=== PATIENT | female | born 1960 | race Caucasian/White ===

== ENCOUNTER 2023-02-24 08:51 | Emergency (ER) | payer MEDICARE, SELFPAY ==
[2023-02-24] VITALS (17 sets, daily range): BP systolic 96–151; BP diastolic 56–103; PULSE 99–114; RESP 15–33; TEMP 36.9; O2SAT 93–99; BMI 31.9
--- NOTE | 2023-02-24 09:31 | ED.ABDPAIN1 ---
HPI - Abdominal Pain General Chief Complaint: Abdominal Pain Stated Complaint: ABDOMINAL PAIN Time Seen by Provider: 02/24/23 09:16 Source: patient Mode of arrival: ambulance Limitations: no limitations History of Present Illness HPI narrative: pt presents to emergency department complaining of abdominal pain. Pain is worse in the left lower quadrant and it started at midnight. Patient has been very nauseated denies any vomiting. She has a history of bowel resections for diverticulitis and has a history of small bowel obstructions. Patient's last surgery was at [facility] 2017. She denies any fever, chills, cough, chest pain, shortness of breath. She denies any paresthesias, or focal weakness. She denies any constipation, or diarrhea. She denies any flank pain, hematuria, dysuria. She denies any trauma. states last week she was having a lot of back pain and she has been taking a lot of Advil. Subsequently a week ago she was having rectal bleeding which she attributed to her normal rectal bleeding that she gets from diverticulosis. At midnight today she developed severe abdominal pain which felt different than her diverticulitis pain. Related Data Home Medications Medication Instructions Recorded Confirmed No Known Home Medications 02/24/23 02/24/23 Allergies Allergy/AdvReac Type Severity Reaction Status Date / Time morphine AdvReac Mild Nausea Verified 02/24/23 09:02 Review of Systems ROS Status of ROS 10 or more systems reviewed and unremarkable except as noted in history and below [facility] Social History Smoking status: Current every day smoker Exam Narrative Exam Narrative: Nurses notes and vital signs reviewed and patient is not hypoxic. General: Nontoxic, Og pain, but in no apparent distress. Skin: Warm, dry, no pallor noted. No Rash Head: Normocephalic, atraumatic. Neck: Supple, non-tender. Eye: Pupils are equal, round and EOMI. No scleral icterus. Ears, Nose, Mouth, and Throat: TM clear, no posterior oropharynx erythema or nasal mucosal hypertrophy, uvula is mid-line Oral mucosa is moist Cardiovascular: Sinus tachycardia without murmur, gallop or rub. Respiratory: No accessory muscle use or respiratory distress. Lungs are clear to auscultation, no wheezing, rales or rhonchi Chest Wall: no tenderness Back: No midline thoracic or lumbar vertebral tenderness. No CVA tenderness Musculoskeletal: normal ROM, no calf or popliteal tenderness, no lower extremity edema/swelling GI: Abdomen is soft, non-distended. Normal bowel sounds. moderate diffuse tenderness to palpation. No rebound, mild guarding, or rigidity noted. Neurological: A&O x4. No cranial nerve dysfunction observed. No truncal ataxia. Moves all extremities. Sensation intact. Psychiatric: Cooperative and interactive. Normal mood and affect. Constitutional Vital Signs, click to edit/add: Last Vital Signs Temp 98.5 F 02/24/23 08:54 Pulse 111 H 02/24/23 12:45 Resp 15 02/24/23 12:45 BP 114/70 02/24/23 12:45 Pulse Ox 93 L 02/24/23 12:45 O2 Del Method Room Air 02/24/23 08:54 Course Vital Signs Vital signs: Vital Signs Temperature 98.5 F 02/24/23 08:54 Pulse Rate 110 H 02/24/23 08:54 Respiratory Rate 20 02/24/23 08:54 Blood Pressure 108/66 02/24/23 08:54 Pulse Oximetry 97 02/24/23 08:54 Oxygen Delivery Method Room Air 02/24/23 08:54 Temperature 98.5 F 02/24/23 08:54 Pulse Rate 111 H 02/24/23 12:45 Respiratory Rate 15 02/24/23 12:45 Blood Pressure 114/70 02/24/23 12:45 Pulse Oximetry 93 L 02/24/23 12:45 Oxygen Delivery Method Room Air 02/24/23 08:54 MDM - Abdominal Pain MDM Narrative Medical decision making narrative: Patient states she does not like morphine. She states makes her nauseated. Patient advised all narcotics have a side effect of nausea. And she will be given Zofran with it. She was Then 1 L of normal saline, Zofran 4 mg, and 50 ?g of fentanyl. Labs and CT scan are pending. Lab studies showed leukocytosis, lactic acidosis, and anemia. 2 units of packed red blood cells were ordered. The patient has been negative including do not have her blood type available and they will be 90 minutes for the blood to arrive here from the nearest facility. In the meantime radiologist called me and advised the patient has a perforation from her upper stomach at this time [facility] was contacted and they do not have any beds available. [facility] been contacted to transfer the patient for definitive care. Patient started on Zosyn and given 1 mg of Dilaudid IV as she is complaining of continued pain. Patient was discussed with Dr. Sapp who has accepted the patient in transfer. Patient will be transferred to Emergency Department to Emergency Department. Patient was accepted by Dr. Mckeon in the emergency department. Flight in route. Patient and family have been updated.Packed red blood cells arrived at the same time as flight. [facility] has taken the blood and they will started in route. Differential Diagnosis Differential diagnosis: Likely abdominal pain, constipation, diverticulitis, gastroenteritis and small bowel obstruction Medical Records Attestation: I reviewed the patient's medical records. Lab Data Attestation: I reviewed the patient's lab results. Labs: Lab Results 02/24/23 02/24/23 Range/Units 10:13 11:01 WBC 17.9 H (4.0-11.0) 10^3/uL RBC 2.52 L (4.20-5.40) 10^6/uL Hgb 5.8 L* (12.0-16.0) g/dL Hct 19.9 L* (36.0-48.0) % MCV 79.0 L (81.0-99.0) fL MCH 23.0 L (26.7-34.0) pg MCHC 29.1 L (29.9-35.2) g/dL RDW 20.5 H (11.0-15.0) % Plt Count 706 H (150-450) 10^3/uL MPV 10.1 (9.5-13.5) fL Neut % (Auto) 93.4 H (43.0-75.0) % Lymph % (Auto) 2.0 L (20.5-60.0) % [place] % (Auto) 4.1 (1.7-12.0) % Eos % (Auto) 0.0 L (0.9-7.0) % Baso % (Auto) 0.1 L (0.2-2.0) % Neut # (Auto) 16.7 H (1.4-6.5) 10^3/uL Lymph # (Auto) 0.4 L (1.2-3.8) 10^3/uL [place] # (Auto) 0.7 (0.3-0.8) 10^3/uL Eos # (Auto) 0.0 (0.0-0.7) 10^3/uL Baso # (Auto) 0.0 (0.0-0.1) 10^3/uL Abs Immat Gran (auto) 0.07 H (0.00-0.03) 10^3/uL Imm/Tot Granulo (auto) 0.4 (0.0-0.5) % Sodium 141 (136-145) mmol/L Potassium 3.4 L (3.5-5.1) mmol/L Chloride 107 (98-107) mmol/L Carbon Dioxide 23.6 (21.0-32.0) mmol/L Anion Gap 13.8 BUN 15.0 (7.0-18.0) mg/dL Creatinine 1.06 H (0.55-1.02) mg/dL Est GFR ( Amer) >60 (>=60) Est GFR (Non-Af Amer) 53 L (>=60) BUN/Creatinine Ratio 14.2 Glucose 185 H (74-106) mg/dL Lactate 2.3 H* (0.4-2.0) mmol/L Calcium 8.9 (8.5-10.1) mg/dL Total Bilirubin 0.3 (0.2-1.0) mg/dL AST 8 L (15-37) U/L ALT <6 L (14-59) U/L Alkaline Phosphatase 123 H (46-116) U/L Total Protein 6.1 L (6.4-8.2) g/dL Albumin 2.6 L (3.4-5.0) g/dL Globulin 3.5 g/dL Albumin/Globulin Ratio 0.7 Lipase 32.0 L (73.0-393.0) U/L Blood Type B Negative Antibody Screen Negative Crossmatch See Detail ECG Data Attestation: I personally reviewed and interpreted this ECG as follows: Critical Care Time Critical Care Time Critical Care Time: Yes Total Critical Care Time: 35 Attestation: Critical Care Time: 35 minutes, critical care time is separate from any procedures that are performed. The following was considered in the determination of critical care but not limited to the level medical decision-making, intensive cardiac and/or respiratory monitor, frequent vital sign monitoring, evaluation of laboratory studies, evaluation of a radiographic studies, oxygen monitoring and constant monitoring. Discharge Plan Discharge Chief Complaint: Abdominal Pain Clinical Impression: Perforated abdominal viscus, Anemia Patient Disposition: [facility] Time of Disposition Decision: 12:19 Discharge Location: [facility] Condition: Fair Mode of Transportation: [facility] Discharge Date/Time: 02/24/23 13:26
--- NOTE | 2023-02-24 09:35 | CT_ITS ---
[address] [address] Patient Name: JERI TORREZ MRN: [id number] date: 1960 Sex: F Assigned Patient Location: ER Current Patient Location: ER Accession/Order Number: [id number] Exam Date: 02/24/2023 11:12 Report Date: 02/24/2023 12:07 At the request of: ARTI BAUM Procedure: CT abdomen pelvis w con CT abdomen pelvis w con CLINICAL HISTORY: Abdominal pain. History of small bowel obstruction. COMPARISON: None available TECHNIQUE: Axial CT from lung bases through symphysis pubis following the injection of 90 mL of Omnipaque 300 iodinated contrast material. 1 cup of Omnipaque 300 oral contrast was administered. Coronal and sagittal reconstructions generated. Dose reduction techniques were achieved by using automated exposure control and/or adjustment of mA and/or kV according to patient size and/or use of iterative reconstruction technique. FINDINGS: CT ABDOMEN FINDINGS: Normal heart size. Moderate hiatal hernia. Lung bases clear. Large free intraperitoneal and retroperitoneal air. Site of perforation appears to arise from the medial right upper stomach just beyond the GE junction with prominent focal gas in the hepatogastric region and periportal region. There is prominent wall thickening and/or nondistention throughout the stomach. There is probable ileus type pattern of the remaining GI tract without convincing obstruction. Prior rectosigmoid anastomotic line. Mild colonic diverticulosis. There is small free ascites throughout the upper abdomen and more moderate layering in the pelvis. Oral contrast was administered and does not grossly extravasate from the GI tract at the time of scanning and could be partially contained at this time. Liver and spleen with normal size and enhancement. Thickening of the adrenal glands and focal nodularity on the left, indeterminate up to 1.5 cm. Gallbladder and pancreas unremarkable. Mild bilateral renal parenchymal thinning. No solid lesion or hydronephrosis. Small left renal cysts. Atherosclerotic aorta without aneurysm. CT PELVIS FINDINGS: Moderate free fluid in the pelvis as noted above probably related to dependent layering. Uterus and ovaries are probably absent or atrophic. Decompressed urinary bladder. No acute bony process. Lumbar spondylosis. CT/CT abdomen pelvis w con IMPRESSION: Large free intraperitoneal and retroperitoneal consistent with perforation. Site of perforation appears to be at the medial upper stomach just beyond the GE junction. There is severe wall thickening and inflammatory change of the adjacent stomach. Unclear if related to ulceration versus malignancy. Small free ascites in the upper abdomen and moderate in the pelvis. No loculated collection at this time but recommend short-term follow-up. Left adrenal indeterminate nodule without comparison. Adrenal protocol CT evaluation of the routine basis. Additional chronic changes: Moderate hiatal hernia. Case discussed with Dr. Baum on date of study at 12:05 PM. Electronically authenticated by: FERNANDO MUNOZ Date: 02/24/2023 12:07
[2023-02-24] MEDS: ONDANSETRON PF 4 MG/2 ML VIAL IV (09:45)
[2023-02-24] MEDS: 0.9 % SODIUM CHLORIDE 1,000 ML 999 ML IV (09:45)
[2023-02-24] MEDS: FENTANYL CITRATE/PF 100 MCG/2 ML VIAL 50 MCG IV (09:45)
[2023-02-24] MEDS: HYDROMORPHONE HCL 0.5 MG/0.5 ML SYRINGE 1 MG IV ×2 (10:44→12:30)
[2023-02-24 10:47] LABS: Basophils Percent Auto 0.1 % (0.2-2.0); Immature Granulocytes Abs Auto 0.07 10^3/uL (0.00-0.03); Immature Granulocytes Pct Auto 0.4 % (0.0-0.5); Lymphocytes Absolute Auto 0.4 10^3/uL (1.2-3.8); Mean Corpuscular HGB Conc 29.1 g/dL (29.9-35.2); Mean Platelet Volume 10.1 fL (9.5-13.5); Monocytes Absolute Auto 0.7 10^3/uL (0.3-0.8); Monocytes Percent Auto 4.1 % (1.7-12.0); Neutrophils Absolute Auto 16.7 10^3/uL (1.4-6.5); Neutrophils Percent Auto 93.4 % (43.0-75.0); Platelet Count 706 10^3/uL (150-450); Red Blood Count 2.52 10^6/uL (4.20-5.40); Red Cell Distribution Width 20.5 % (11.0-15.0); White Blood Count 17.9 10^3/uL (4.0-11.0)
[2023-02-24 10:53] LABS: Hematocrit 19.9 % (36.0-48.0); Hemoglobin 5.8 g/dL (12.0-16.0)
[2023-02-24 10:59] LABS: Alanine Aminotransferase <6 U/L (14-59); Albumin Globulin Ratio 0.7; Albumin Level 2.6 g/dL (3.4-5.0); Alkaline Phosphatase 123 U/L (46-116); Anion Gap 13.8; Aspartate Amino Transferase 8 U/L (15-37); BUN Creatinine Ratio 14.2; Bilirubin Total 0.3 mg/dL (0.2-1.0); Calcium 8.9 mg/dL (8.5-10.1); Carbon Dioxide 23.6 mmol/L (21.0-32.0); Chloride 107 mmol/L (98-107); Estimated GFR (African America >60 (>=60); Estimated GFR (Non-African Ame 53 (>=60); Globulin 3.5 g/dL; Glucose 185 mg/dL (74-106); Potassium 3.4 mmol/L (3.5-5.1); Sodium 141 mmol/L (136-145); Total Protein 6.1 g/dL (6.4-8.2)
[2023-02-24 11:05] LABS: Lactate/Lactic Acid 2.3 mmol/L (0.4-2.0)
[2023-02-24] MEDS: PIPERACILLIN SODIUM/TAZOBACTAM 4.5 GM in 0.9 % SODIUM CHLORIDE 50 ML IV (12:22)
--- NOTE | 2023-02-24 12:45 | ECG_ITS ---
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
--- NOTE | 2023-02-24 13:17 | PC.NURSE ---
1 Unit of blood verified with RN & lifeflight crew and sent with lifeflight crew. [facility] crew will start blood transfusion on transport to facility.
--- NOTE | 2023-02-24 13:24 | PC.NURSE ---
Report called to [facility], updated on Patient care of plan and answered all questions.
== END 2023-02-24 13:26 | disposition short-term general hospital (02) ==
PROVIDERS: Emergency Provider Emergency Medicine
DX: K63.1 Perforation of intestine (nontraumatic) (principal); D64.9 Anemia, unspecified; Z90.49 Acquired absence of other specified parts of digestive tract; F17.210 Nicotine dependence, cigarettes, uncomplicated
CPT/HCPCS: 36415; 36430; 74177; 80053; 83605; 83690; 85025; 86850; 86900; 86901; 86920; 93005; 96365; 96375; 96376; 99285; J1170; P9016; Q9967

== ENCOUNTER 2023-03-18 14:00 | Emergency (ER) | payer MEDICARE, SELFPAY ==
[2023-03-18] VITALS (14 sets, daily range): BP systolic 123–136; BP diastolic 92–99; PULSE 87–103; RESP 16–24; TEMP 36.6; O2SAT 94–97; BMI 29.5
--- NOTE | 2023-03-18 14:11 | ECG_ITS ---
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
--- NOTE | 2023-03-18 14:14 | XR_ITS ---
The [address] [address] Patient Name: JERI TORREZ MRN: [id number] date: 1960 Sex: F Assigned Patient Location: ER Current Patient Location: ER Accession/Order Number: [id number] Exam Date: 03/18/2023 14:40 Report Date: 03/18/2023 15:02 At the request of: ADILSON HERNANDEZ Procedure: XR chest 1V EXAMINATION: XR chest 1V 03/18/2023 12:00 PM PDT HISTORY: weak TECHNIQUE: Single frontal view of the chest acquired. COMPARISONS: CT abdomen/pelvis 02/24/2023. FINDINGS: Lines/tubes/other: None. Heart and mediastinum: The heart and the mediastinum are within normal limits for technique. Specifically, the hiatal hernia seen on the preceding CT abdomen/pelvis is not well demonstrated on this exam. Bones: No acute osseous abnormality. Lungs: The lungs are clear. There is no evidence of pneumonia or pulmonary edema. Pleura: Blunting of the left costophrenic angle. No significant right pleural effusion and no pneumothorax. Other: None. XR/XR chest 1V IMPRESSION: Blunting of the left costophrenic angle favored to be a small pleural effusion, however, mild atelectasis could have a similar appearance. No pulmonary edema. Electronically authenticated by: HAKAN GONZALEZ Date: 03/18/2023 15:02
--- NOTE | 2023-03-18 14:24 | ED.GENADUL1 ---
HPI - General Adult General Chief complaint: Dizziness Stated complaint: DIZZINESS Time Seen by Provider: 03/18/23 14:01 Source: patient Mode of arrival: walk-in Limitations: no limitations History of Present Illness HPI narrative: 62-year-old female presented for being pale and dizzy. She was sent from the doctor's office. It was her 1st visit to that office and the PA there is felt that she was pale and dizzy. The patient states she was fine up until the time she left to go to that doctor's appointment. Less than a month ago she had perforated gastric ulcer and had to have this emergency surgery. She still has a wound VAC. She doesn't complain of abdominal pain to me. No fever vomiting or shortness of breath. Related Data Home Medications Medication Instructions Recorded Confirmed No Known Home Medications 02/24/23 02/24/23 Allergies Allergy/AdvReac Type Severity Reaction Status Date / Time morphine AdvReac Mild Nausea Verified 02/24/23 09:02 Review of Systems ROS Narrative A ten point review of systems is negative except as noted above. PFSH PFSH Social History Smoking status: Current every day smoker Exam Narrative Exam Narrative: Nurses note and vital signs reviewed and patient is not hypoxic. General: The patient appears well and in no apparent distress. Patient is resting comfortably on cart. Skin: Warm, dry, mild pallor noted. There is no rash noted. Head: Normocephalic, atraumatic Eye: Normal conjunctiva, no drainage Ears, Nose, Mouth, and Throat: oral mucosa is moist. Nares patent. Cardiovascular: Regular Rate and Rhythm Respiratory: Patient is in no distress, no accessory muscle use, lungs are clear to auscultation, no wheezing, rales or rhonchi Back: non-tender GI: soft and nondistended. Wound VAC in place. Minimal tenderness present. Musculoskeletal: The patient has no evidence of calf tenderness, no pitting edema, symmetrical pulses noted bilaterally Neurological: A&O, normal speech Psychiatric: Cooperative Constitutional Vital Signs, click to edit/add: Last Vital Signs Temp 97.9 F 03/18/23 14:04 Pulse 87 03/18/23 15:40 Resp 22 03/18/23 15:40 BP 129/99 H 03/18/23 15:10 Pulse Ox 94 L 03/18/23 15:40 O2 Del Method Room Air 03/18/23 14:04 Course Vital Signs Vital signs: Vital Signs Temperature 97.9 F 03/18/23 14:04 Pulse Rate 98 H 03/18/23 14:04 Respiratory Rate 18 03/18/23 14:04 Blood Pressure 127/92 H 03/18/23 14:04 Pulse Oximetry 95 03/18/23 14:04 Oxygen Delivery Method Room Air 03/18/23 14:04 Temperature 97.9 F 03/18/23 14:04 Pulse Rate 87 03/18/23 15:40 Respiratory Rate 22 03/18/23 15:40 Blood Pressure 129/99 H 03/18/23 15:10 Pulse Oximetry 94 L 03/18/23 15:40 Oxygen Delivery Method Room Air 03/18/23 14:04 Medical Decision Making MDM Narrative Medical decision making narrative: her blood pressure has been normal on several rechecks. She's been able to ambulate without difficulty and blood work is appropriate. She doesn't require further workup and she's being discharged home. Treatment diagnosis and follow-up were discussed with the patient and her family. Differential Diagnosis Differential Diagnosis: hypovolemia, anemia, acute kidney injury Medical Records Medical records reviewed: Yes I reviewed the patient's medical records Lab Data Lab results reviewed: Yes I reviewed the patient's lab results Labs: Lab Results 03/18/23 Range/Units 14:30 WBC 7.4 (4.0-11.0) 10^3/uL RBC 4.09 L (4.20-5.40) 10^6/uL Hgb 9.8 L (12.0-16.0) g/dL Hct 32.5 L (36.0-48.0) % MCV 79.5 L (81.0-99.0) fL MCH 24.0 L (26.7-34.0) pg MCHC 30.2 (29.9-35.2) g/dL RDW 19.9 H (11.0-15.0) % Plt Count 738 H (150-450) 10^3/uL MPV 10.2 (9.5-13.5) fL Neut % (Auto) 71.2 (43.0-75.0) % Lymph % (Auto) 17.1 L (20.5-60.0) % [place] % (Auto) 7.5 (1.7-12.0) % Eos % (Auto) 2.4 (0.9-7.0) % Baso % (Auto) 1.4 (0.2-2.0) % Neut # (Auto) 5.3 (1.4-6.5) 10^3/uL Lymph # (Auto) 1.3 (1.2-3.8) 10^3/uL [place] # (Auto) 0.6 (0.3-0.8) 10^3/uL Eos # (Auto) 0.2 (0.0-0.7) 10^3/uL Baso # (Auto) 0.1 (0.0-0.1) 10^3/uL Abs Immat Gran (auto) 0.03 (0.00-0.03) 10^3/uL Imm/Tot Granulo (auto) 0.4 (0.0-0.5) % Sodium 138 (136-145) mmol/L Potassium 4.6 (3.5-5.1) mmol/L Chloride 105 (98-107) mmol/L Carbon Dioxide 22.2 (21.0-32.0) mmol/L Anion Gap 15.4 BUN 15.0 (7.0-18.0) mg/dL Creatinine 0.78 (0.55-1.02) mg/dL Est GFR ( Amer) >60 (>=60) Est GFR (Non-Af Amer) >60 (>=60) BUN/Creatinine Ratio 19.2 Glucose 122 H (74-106) mg/dL Calcium 9.8 (8.5-10.1) mg/dL Imaging Data Chest x-ray: Radiologist's impression: no acute findings Discharge Plan Discharge Chief Complaint: Dizziness Clinical Impression: Dizziness Patient Disposition: Home, Self-Care Time of Disposition Decision: 16:53 Condition: Good Mode of Transportation: Private Vehicle Prescriptions / Home Meds: No Action No Known Home Medications Instructions: Dizziness (ED) Stand Alone Forms: Portal Instructions Referrals: Physician,Non-Staff, MD [Primary Care Provider] - 1 week
[2023-03-18 16:08] LABS: Basophils Absolute Auto 0.1 10^3/uL (0.0-0.1); Basophils Percent Auto 1.4 % (0.2-2.0); Eosinophils Absolute Auto 0.2 10^3/uL (0.0-0.7); Eosinophils Percent Auto 2.4 % (0.9-7.0); Hematocrit 32.5 % (36.0-48.0); Hemoglobin 9.8 g/dL (12.0-16.0); Immature Granulocytes Abs Auto 0.03 10^3/uL (0.00-0.03); Immature Granulocytes Pct Auto 0.4 % (0.0-0.5); Lymphocytes Absolute Auto 1.3 10^3/uL (1.2-3.8); Lymphocytes Percent Auto 17.1 % (20.5-60.0); Mean Corpuscular HGB Conc 30.2 g/dL (29.9-35.2); Mean Corpuscular Volume 79.5 fL (81.0-99.0); Mean Platelet Volume 10.2 fL (9.5-13.5); Monocytes Absolute Auto 0.6 10^3/uL (0.3-0.8); Monocytes Percent Auto 7.5 % (1.7-12.0); Neutrophils Absolute Auto 5.3 10^3/uL (1.4-6.5); Neutrophils Percent Auto 71.2 % (43.0-75.0); Platelet Count 738 10^3/uL (150-450); Red Blood Count 4.09 10^6/uL (4.20-5.40); Red Cell Distribution Width 19.9 % (11.0-15.0); White Blood Count 7.4 10^3/uL (4.0-11.0)
[2023-03-18 16:12] LABS: Anion Gap 15.4; BUN Creatinine Ratio 19.2; Calcium 9.8 mg/dL (8.5-10.1); Carbon Dioxide 22.2 mmol/L (21.0-32.0); Chloride 105 mmol/L (98-107); Estimated GFR (African America >60 (>=60); Estimated GFR (Non-African Ame >60 (>=60); Glucose 122 mg/dL (74-106); Potassium 4.6 mmol/L (3.5-5.1); Sodium 138 mmol/L (136-145)
== END 2023-03-18 17:18 | disposition home or self-care (01) ==
PROVIDERS: Emergency Provider Emergency Medicine
DX: R42 Dizziness and giddiness (principal); F17.210 Nicotine dependence, cigarettes, uncomplicated
CPT/HCPCS: 36415; 71045; 80048; 85025; 93005; 99285

== ENCOUNTER 2023-04-06 12:29 | Outpatient (OUT) | payer MEDICARE, SELFPAY ==
[2023-04-06 12:58] LABS: Basophils Absolute Auto 0.1 10^3/uL (0.0-0.1); Eosinophils Absolute Auto 0.1 10^3/uL (0.0-0.7); Eosinophils Percent Auto 1.2 % (0.9-7.0); Hematocrit 36.5 % (36.0-48.0); Immature Granulocytes Abs Auto 0.02 10^3/uL (0.00-0.03); Immature Granulocytes Pct Auto 0.2 % (0.0-0.5); Lymphocytes Percent Auto 24.1 % (20.5-60.0); Mean Corpuscular HGB Conc 30.1 g/dL (29.9-35.2); Mean Corpuscular Hemoglobin 23.3 pg (26.7-34.0); Mean Corpuscular Volume 77.3 fL (81.0-99.0); Mean Platelet Volume 9.7 fL (9.5-13.5); Monocytes Absolute Auto 0.4 10^3/uL (0.3-0.8); Monocytes Percent Auto 4.9 % (1.7-12.0); Neutrophils Absolute Auto 5.6 10^3/uL (1.4-6.5); Neutrophils Percent Auto 68.6 % (43.0-75.0); Platelet Count 516 10^3/uL (150-450); Red Blood Count 4.72 10^6/uL (4.20-5.40); Red Cell Distribution Width 20.8 % (11.0-15.0); White Blood Count 8.1 10^3/uL (4.0-11.0)
[2023-04-06 13:12] LABS: Estimated Average Glucose 94 mg/dL; Glycohemoglobin A1C 4.9 % (4.5-6.2)
[2023-04-06 13:27] LABS: Alanine Aminotransferase 12 U/L (14-59); Albumin Globulin Ratio 0.8; Alkaline Phosphatase 138 U/L (46-116); Anion Gap 12.6; Aspartate Amino Transferase 16 U/L (15-37); BUN Creatinine Ratio 11.8; Bilirubin Total 0.3 mg/dL (0.2-1.0); Calcium 9.5 mg/dL (8.5-10.1); Carbon Dioxide 24.3 mmol/L (21.0-32.0); Chloride 105 mmol/L (98-107); Cholesterol 185 mg/dL (<=200); Estimated GFR (African America >60 (>=60); Estimated GFR (Non-African Ame >60 (>=60); Glucose 97 mg/dL (74-106); HDL Cholesterol 91 mg/dL (40-60); Potassium 3.9 mmol/L (3.5-5.1); Sodium 138 mmol/L (136-145); Thyroid Stimulating Hormone 0.918 uIU/mL (0.358-3.740); Triglycerides 132 mg/dL (<=150); VLDL CHOLESTEROL 26.4 mg/dL
[2023-04-06 13:28] LABS: Percent Iron Saturation 5.1 %
[2023-04-07 08:08] LABS: HCV Ab Non Reactive (Non Reactive); HIV Ab/p24 Ag Screen Non Reactive (Non Reactive)
== END 2023-04-06 12:30 | disposition home or self-care (01) ==
LOC: LAB 12:29
PROVIDERS: PCP Nurse Practitioner Primary Care; Visit Provider Nurse Practitioner Primary Care
DX: Z00.00 Encounter for general adult medical examination without abnormal findings (principal); Z11.59 Encounter for screening for other viral diseases; Z13.6 Encounter for screening for cardiovascular disorders; Z13.29 Encounter for screening for other suspected endocrine disorder; Z11.4 Encounter for screening for human immunodeficiency virus [HIV]
CPT/HCPCS: 36415; 80053; 80061; 82607; 82728; 82746; 83036; 83540; 83550; 84443; 85025; 86803; 87389

== ENCOUNTER 2023-05-01 07:37 | Outpatient (RCR) | payer MEDICARE, SELFPAY ==
[2023-04-24 14:00] VITALS: BP 130/88; PULSE 97; RESP 20; TEMP 36.9; O2SAT 92
[2023-04-24] MEDS: FERUMOXYTOL 510 MG in 0.9 % SODIUM CHLORIDE 100 ML 234 MG IV (14:25)
--- NOTE | 2023-04-24 14:51 | PC.NURSE ---
1400: Pt. to [facility] amb. using cane, accompanied by family member. Seated in recliner. VSS. Denies c/o. #24 gauge IV initiated to left hand on second attempt per this RN. Flushes easliy with no redness or edema. Pt. tolerated with min. c/o pain. IV Ferumoxytol 510mg initiated at this time. Pt. given water. Denies c/o. 1450: IV iron completed without s&s of adverse reaction. Denies c/o. IV d/c'd, pressure to site. 1451: Pt. d/c'd amb with family.
[2023-05-01] MEDS: FERUMOXYTOL 510 MG in 0.9 % SODIUM CHLORIDE 100 ML 351 MG IV (14:11)
[2023-05-01 14:12] VITALS: BP 161/93; PULSE 110; RESP 14; TEMP 36.6; O2SAT 95
--- NOTE | 2023-05-01 14:15 | PC.NURSE ---
1355 arrived ambulatory to chair 1. alert oriented no complaints voiced. IV initated left wrist area on 2nd attempt. tolerated well. IV infusion initiated as per OCT. Tolerating well. 1415 Pulse recheck 91 (was 110 on arrival).
== END 2023-05-11 23:59 | disposition home or self-care (01) ==
LOC: INF 07:37
PROVIDERS: PCP Nurse Practitioner Primary Care; Visit Provider Internal Medicine Hematology & Oncology
DX: D50.9 Iron deficiency anemia, unspecified (principal); K90.9 Intestinal malabsorption, unspecified; D52.9 Folate deficiency anemia, unspecified; D72.829 Elevated white blood cell count, unspecified; D75.839 Thrombocytosis, unspecified
CPT/HCPCS: 96365; G0463; Q0138

== ENCOUNTER 2023-06-07 12:44 | Outpatient (OUT) | payer MEDICARE, SELFPAY ==
[2023-06-07 14:15] LABS: Basophils Absolute Auto 0.1 10^3/uL (0.0-0.1); Basophils Percent Auto 1.3 % (0.2-2.0); Eosinophils Absolute Auto 0.1 10^3/uL (0.0-0.7); Eosinophils Percent Auto 1.3 % (0.9-7.0); Hematocrit 42.6 % (36.0-48.0); Hemoglobin 13.7 g/dL (12.0-16.0); Immature Granulocytes Abs Auto 0.01 10^3/uL (0.00-0.03); Immature Granulocytes Pct Auto 0.2 % (0.0-0.5); Lymphocytes Absolute Auto 1.9 10^3/uL (1.2-3.8); Lymphocytes Percent Auto 40.5 % (20.5-60.0); Mean Corpuscular HGB Conc 32.2 g/dL (29.9-35.2); Mean Corpuscular Hemoglobin 27.7 pg (26.7-34.0); Mean Corpuscular Volume 86.1 fL (81.0-99.0); Monocytes Absolute Auto 0.3 10^3/uL (0.3-0.8); Monocytes Percent Auto 6.7 % (1.7-12.0); Neutrophils Absolute Auto 2.4 10^3/uL (1.4-6.5); Platelet Count 268 10^3/uL (150-450); Red Blood Count 4.95 10^6/uL (4.20-5.40); White Blood Count 4.8 10^3/uL (4.0-11.0)
[2023-06-07 14:49] LABS: Percent Iron Saturation 16.9 %
[2023-06-07 14:55] LABS: Alanine Aminotransferase 14 U/L (14-59); Albumin Level 3.3 g/dL (3.4-5.0); Alkaline Phosphatase 72 U/L (46-116); Anion Gap 11.2; Aspartate Amino Transferase 13 U/L (15-37); BUN Creatinine Ratio 17.7; Bilirubin Total 0.2 mg/dL (0.2-1.0); Calcium 10.1 mg/dL (8.5-10.1); Carbon Dioxide 24.4 mmol/L (21.0-32.0); Chloride 104 mmol/L (98-107); Chol HDL Ratio 2.7; Cholesterol 234 mg/dL (<=200); Estimated GFR (African America >60 (>=60); Estimated GFR (Non-African Ame >60 (>=60); Globulin 3.3 g/dL; Glucose 83 mg/dL (74-106); HDL Cholesterol 87 mg/dL (40-60); Potassium 3.6 mmol/L (3.5-5.1); Sodium 136 mmol/L (136-145); Thyroid Stimulating Hormone 1.264 uIU/mL (0.358-3.740); Total Protein 6.6 g/dL (6.4-8.2); Triglycerides 103 mg/dL (<=150); VLDL CHOLESTEROL 20.6 mg/dL
[2023-06-07 15:22] LABS: Estimated Average Glucose 77 mg/dL; Glycohemoglobin A1C 4.3 % (4.5-6.2)
[2023-06-08 07:09] LABS: HCV Ab Non Reactive (Non Reactive); HIV Ab/p24 Ag Screen Non Reactive (Non Reactive)
== END 2023-06-07 12:45 | disposition home or self-care (01) ==
LOC: LAB 12:49
PROVIDERS: PCP Nurse Practitioner Primary Care; Visit Provider Nurse Practitioner Primary Care
DX: Z00.00 Encounter for general adult medical examination without abnormal findings (principal); Z11.59 Encounter for screening for other viral diseases; Z13.6 Encounter for screening for cardiovascular disorders; Z13.29 Encounter for screening for other suspected endocrine disorder; Z11.4 Encounter for screening for human immunodeficiency virus [HIV]
CPT/HCPCS: 36415; 80053; 80061; 82607; 82728; 82746; 83036; 83540; 83550; 84443; 85025; 86803; 87389

== ENCOUNTER 2023-06-11 07:27 | Outpatient (RCR) | payer MEDICARE, SELFPAY | END 2023-06-11 23:59 | disposition home or self-care (01) | LOC: INF 07:27 | PROVIDERS: PCP Nurse Practitioner Primary Care; Visit Provider Internal Medicine Hematology & Oncology | DX: D72.829 Elevated white blood cell count, unspecified (principal); D64.9 Anemia, unspecified; D75.839 Thrombocytosis, unspecified; D50.9 Iron deficiency anemia, unspecified; K90.9 Intestinal malabsorption, unspecified; D52.9 Folate deficiency anemia, unspecified; F17.210 Nicotine dependence, cigarettes, uncomplicated | CPT/HCPCS: G0463 ==

== ENCOUNTER 2023-06-21 13:44 | Outpatient (OUT) | payer MEDICARE, SELFPAY ==
--- NOTE | 2023-06-21 13:49 | CT_ITS ---
The [address] [address] Patient Name: JERI TORREZ MRN: [id number] date: 1960 Sex: F Assigned Patient Location: CT Current Patient Location: CT Accession/Order Number: [id number] Exam Date: 06/21/2023 15:30 Report Date: 06/21/2023 21:34 At the request of: PARKER BANERJEE Procedure: CT abdomen pelvis w con CLINICAL HISTORY: Abdominal Pain. Had surgery for perforated ulcer in February of 2023. EXAMINATION: Enhanced CT scan of the abdomen and pelvis: 06/21/2023. COMPARISON: Enhanced CT scan of the abdomen and pelvis: 02/24/2023. TECHNIQUE: 3 mm axial images from lung bases through ischial tuberosities following administration of intravenous contrast were obtained. Sagittal, coronal reconstructions were also performed. FINDINGS: There are degenerative changes of thoracolumbar spine with vacuum disc phenomena at L5/S1. The patient has undergone probably partial resection of the stomach as seen by sutures along the stomach with a small sliding-type hiatus hernia. There is a linear density in the lingula. The lung bases otherwise are normal. The heart size seems normal. There is suggestion of small pericardial effusion. CT ABDOMEN: There is a low-attenuation lesion in the lateral segment of the left hepatic lobe, measuring approximately 1.0 cm in size with average Hounsfield units of approximately 23. There is an additional lesion further inferiorly in the lateral segment of the left hepatic lobe, measuring approximately 1.1 cm. These remain unchanged. There is an additional lesion bilobed in nature in AP dimension measuring approximately 1.1 cm, image 51 sequence 3, average Hounsfield units of approximately 15. The remainder of the liver seems normal. The gallbladder, spleen, adrenal glands, pancreas, kidneys appear normal. The abdominal aorta is mildly atherosclerotic. There is no retroperitoneal or mesenteric adenopathy. The bowel loops are of normal caliber with moderate amount of stool in the colon. Appendix is not well seen. CT PELVIS: The bladder is normal. The uterus, ovaries are not seen. There is no pelvic adenopathy. There are no focal fluid collections. On the delayed phase images, there is no extravasation of contrast from the bladder base. Uterus, ovaries are not seen. There is no pelvic adenopathy. There are no focal fluid collections. CT/CT abdomen pelvis w con IMPRESSION: 1. No obvious explanation for patient's symptoms. 2. Few scattered simple cyst in the liver. 3. Constipation. 4. Prior hysterectomy. 5. Diverticulosis without diverticulitis. Electronically authenticated by: LISSETTE SHERMAN Date: 06/21/2023 21:34
== END 2023-06-21 13:45 | disposition home or self-care (01) ==
LOC: CT 13:44
PROVIDERS: PCP Nurse Practitioner Primary Care; Visit Provider Internal Medicine Hematology & Oncology
DX: D64.9 Anemia, unspecified (principal); D75.839 Thrombocytosis, unspecified; D50.9 Iron deficiency anemia, unspecified; K90.9 Intestinal malabsorption, unspecified; D52.9 Folate deficiency anemia, unspecified; R10.31 Right lower quadrant pain; K76.89 Other specified diseases of liver; K59.00 Constipation, unspecified; K57.90 Diverticulosis of intestine, part unspecified, without perforation or abscess without bleeding
CPT/HCPCS: 74177; Q9967